=== PATIENT | female | born 1970 | race Caucasian/White ===

== ENCOUNTER 2019-12-09 11:35 | Inpatient (IN) | payer OTHER ==
[~2019-12-09] VITALS: Ht 170 cm; Wt 84.8 kg
[2019-12-09] VITALS (27 sets, daily range): BP systolic 49–168; BP diastolic 20–99
[2019-12-09 12:17] LABS: HEMATOCRIT 23.3 % (37.0-47.0); MEAN CELL VOLUME 84.4 fl (81.0-99.0); MEAN CORPUSCULAR HGB 25.7 pg (27.0-31.0); MEAN CORPUSCULAR HGB CONC 30.5 g/dl (33.0-37.0); PLATELET COUNT AUTOMATED 59 10*3/uL (130-400); RED BLOOD COUNT 2.76 10*6/uL (4.10-5.10); RED CELL DISTRI WIDTH 19.6 % (0-14.5)
[2019-12-09 12:23] LABS: INTERNATIONAL NORM RATIO 1.3 (2.0-3.5)
[2019-12-09 12:30] LABS: ALBUMIN 1.6 gm/dl (3.1-4.5); CREATININE 1.69 mg/dL (0.55-1.02); POTASSIUM 5.2 mmol/L (3.5-5.1); TOTAL PROTEIN 4.4 gm/dL (6.4-8.2)
[2019-12-09 12:33] LABS: TROPONIN I < 0.015 ng/ml (<0.045)
[2019-12-09 12:36] LABS: PLATELET SUFFICIENCY LOW (NORMAL); TOTAL CELLS COUNTED 100 #CELLS; TOXIC GRANULATION SLIGHT; VACUOLATION OF NEUTROPHILS SLIGHT
[2019-12-09 13:41] LABS: BILIRUBIN 1+ (NEGATIVE); BLOOD 3+ (NEGATIVE); CLARITY TURBID (CLEAR); COLOR RED (YELLOW); GLUCOSE NEGATIVE (NEGATIVE); KETONE 1+ (NEGATIVE); LEUKO ESTERASE 2+ (NEGATIVE); NITRITE NEGATIVE (NEGATIVE); SPECIFIC GRAVITY 1.015 (1.005-1.030); UROBILINOGEN 0.2 E.U./dl (0.2-1.0)
[2019-12-09 13:49] LABS: BACTERIA 4+; RBC TNTC rbc/hpf (0-2); WBC TNTC wbc/hpf (0-5)
[2019-12-09] MEDS ORDERED: TYLENOL325 M1 PO (16:23)
[2019-12-09] MEDS ORDERED: DULCOLAX10 M1 R (16:25)
[2019-12-09] MEDS ORDERED: PEPCID20 MG PO (16:25)
[2019-12-09] MEDS ORDERED: Duragesic 100100 MCG TD (16:27)
[2019-12-09] MEDS ORDERED: MIRALAX17 GM PO (16:28)
[2019-12-09] MEDS ORDERED: MOM30 M1 PO (16:28)
[2019-12-09] MEDS ORDERED: OXYCONTIN10 M1 PO (16:30)
[2019-12-09] MEDS ORDERED: OXYCODONE HCL10 M1 PO (16:31)
[2019-12-09] MEDS ORDERED: POTASSIUM CHLO20 ME4 PO (16:31)
[2019-12-09] MEDS ORDERED: SERTRALINE HYDR25 MG PO (16:33)
[2019-12-09] MEDS ORDERED: SENNA8.6 MG PO (16:33)
[2019-12-09] MEDS ORDERED: GAS RELIEF 8080 MG PO (16:34)
[2019-12-09] MEDS ORDERED: SLOMG PO (16:40)
[2019-12-09] MEDS ORDERED: CALCIUM PO (16:40)
== END 2019-12-09 23:35 | disposition expired | DRG 871 ==
LOC: ED 11:35 → EDHOLD 14:45 → ICCU 14:45
PROVIDERS: Emergency Medicine; Nurse Practitioner Family; ADMIT Internal Medicine
PROC: B548ZZA Ultrasonography of Superior Vena Cava, Guidance (ICD-10-PCS; principal; 2019-12-09)
PROC: 02HV33Z Insertion of Infusion Device into Superior Vena Cava, Percutaneous Approach (ICD-10-PCS; principal; 2019-12-09)
DX: A41.9 Sepsis, unspecified organism (principal); R65.21 Severe sepsis with septic shock; N17.0 Acute kidney failure with tubular necrosis; I26.99 Other pulmonary embolism without acute cor pulmonale; E43 Unspecified severe protein-calorie malnutrition; N39.0 Urinary tract infection, site not specified; E87.2 Acidosis; L02.91 Cutaneous abscess, unspecified; E87.1 Hypo-osmolality and hyponatremia; I82.501 Chronic embolism and thrombosis of unspecified deep veins of right lower extremity; C56.9 Malignant neoplasm of unspecified ovary; M84.552A Pathological fracture in neoplastic disease, left femur, initial encounter for fracture; E86.0 Dehydration; E87.5 Hyperkalemia; E87.8 Other disorders of electrolyte and fluid balance, not elsewhere classified; E83.42 Hypomagnesemia; R31.0 Gross hematuria; D50.9 Iron deficiency anemia, unspecified; E53.8 Deficiency of other specified B group vitamins; K59.00 Constipation, unspecified; K21.9 Gastro-esophageal reflux disease without esophagitis; G89.3 Neoplasm related pain (acute) (chronic); F32.9 Major depressive disorder, single episode, unspecified; Z66 Do not resuscitate; Z51.5 Encounter for palliative care; E66.9 Obesity, unspecified; Z68.29 Body mass index [BMI] 29.0-29.9, adult; Z90.49 Acquired absence of other specified parts of digestive tract; Z90.710 Acquired absence of both cervix and uterus; Z87.891 Personal history of nicotine dependence; Z79.899 Other long term (current) drug therapy; Z87.440 Personal history of urinary (tract) infections